=== PATIENT | female | born 1955 | race Caucasian/White ===

== ENCOUNTER 2024-04-10 19:48 | Emergency (ER) | payer MEDICARE ==
[~2024-04-10] VITALS: Ht 167.6 cm; Wt 72.6 kg
[2024-04-10 20:32] LABS: RAPID GROUP A STREP negative (NEGATIVE)
[2024-04-10 20:36] LABS: SARS-CoV-2, RNA, NAAT NEGATIVE SARS CoV-2 (NEGATIVE)
--- NOTE | 2024-04-10 20:41 | ERN ---
ED Note History of Present Illness Stated Complaint: C/O COUGH W/PHLEGM, N X V, SORE THROAT, SOB Chief Complaint: Cough Time Seen by MD: 20:01 Dictation: History of present illness: 68-year-old female with past medical history of asthma, hyperlipidemia, hypertension, status post liver transplant 9 years back for autoimmune disease, status post tonsillectomy, status post cholecystectomy presented to ED with complaints of cough with phlegm for past 4 days, sore throat, nausea, vomiting, loose stools for 1 day. She is also complaining of worsening shortness of breath. Patient lives in [place] and she is traveling right now. She is taking tacrolimus, mycophenolate, prednisone daily. At the time of presentation she is afebrile with temperature 100.4, pulse rate 75 beats per minute, respiratory rate 20 per minute, blood pressure 157/82 mmHg, SpO2 93% on room air. Allergies: Coded Allergies: No Known Allergies (Unverified Allergy, Unknown, 04/10/24) Past Medical History Past Medical History: Asthma, High Cholesterol, Hypertension Surgical History: Hysterectomy, Tonsillectomy, Cholecystectomy, Other Surgical History Other: LIVER TRANSPLANT (9 YRS) Family History: Negative Social History: Negative RN Note Reviewed/Agreed w/PFSH: Yes Review of System Dictation REVIEW OF SYSTEMS Positive for shortness of breath, productive cough, sore throat, nausea, vomiting, loose stools CONSTITUTIONAL: Denies fevers, chills, or night sweats. No unintentional weight loss reported. ENT: No hearing loss, otalgia, otorrhea, rhinitis, rhinorrhea, hoarseness, or sore throat. CARDIOVASCULAR: Denies any exertional angina, dyspnea on exertion, orthopnea, paroxysmal nocturnal dyspnea, palpitations claudication. PULMONARY: Denies any, hemoptysis, pleuritic chest pain. SLEEP: Denies morning headaches, daytime somnolence or napping. Denies difficulty falling asleep, staying asleep, waking from sleep. Denies knowledge of snoring. GASTROINTESTINAL: Denies any type of dysphagia to either liquids or solids. Denies, constipation, blood in stools . NEUROLOGICAL: Denies headache, motor weakness, sensory deficit, vertigo / spinning sensation, gait abnormalities, or tremors. GENITOURINARY: Denies frequency, urgency, nocturia, hematuria or incontinence, low urinary stream, straining to void, urinary intermittency or hesitancy ENDOCRINOLOGY: Denies polyuria, polydipsia, polyphagia or heat / cold intolerance. HEMATOLOGY: Denies thrombophilia / previous clots, or coagulopathy / bleeding disorders. ONCOLOGIC: Denies personal history of malignancy. DERMATOLOGIC: Denies rashes or pruritus. PSYCHIATRIC: Denies any suicidal or homicidal ideation. Denies hallucinations. Initial Vital Sign VS Vital Signs Date Time Temp Pulse Resp B/P (MAP) Pulse Ox O2 Delivery O2 Flow Rate FiO2 04/10/24 19:53 100.4 75 20 157/82 93 Room Air 04/10/24 21:01 0 21 Physical Exam Dictation PHYSICAL EXAM GENERAL APPEARANCE: Well nourished . Awake and alert. Oriented to time, place and person. No acute cardiopulmonary distress. HEENT: Head normocephalic , atraumatic. Sclera anicteric . Pupils are round and reactive. Extraocular movements intact . No conjunctival injection. No nasal congestion. Posterior Pharyngeal wall congestion noted NECK: Supple. No JVD. No thyromegaly. No submental, submandibular, pre- /postauricular, occipital or supraclavicular lymphadenopathy. No carotid bruits. CHEST: Normal chest expansion. No Telemetry. LUNGS: Decreased breath sounds on the right side compared to left side CARDIOVASCULAR: Regular rate and rhythm. S1 and S2 normal. No rubs, murmurs or gallops. ABDOMEN: Soft, nontender, and nondistended. There is no rebound tenderness, voluntary guarding, or rigidity. No hepatosplenomegaly. Bowel sounds normal in all four quadrants . Right-sided laparotomy scar. NEUROLOGICAL: Cranial nerves II-XII grossly intact. Motor is 5/5 in bilateral upper and lower extremities . No sensory deficits. EXTREMITIES: No edema, No cyanosis , No clubbing. Good capillary refill. SKIN: No skin breakdown. No rashes or lesions . PSYCHIATRY: Normal affect .No auditory or visual hallucinations. Normal speech. No dysarthria. Results (Laboratory/Radiology) Laboratory/Radiology Laboratory Tests Test 04/10/24 20:00 04/10/24 20:38 Influenza Type A Antigen Negative For Type A Influenza Type B Antigen Negative For Type B SARS-CoV-2, RNA, NAAT NEGATIVE SARS CoV-2 Group A Streptococcus Rapid negative (NEGATIVE) White Blood Count 15.0 K/uL (4.8-10.8) H Red Blood Count 4.50 MIL/uL (4.00-5.50) Hemoglobin 13.2 g/dL (12.0-16.0) Hematocrit 40.7 % (36-48) Mean Corpuscular Volume 90.4 fL (79-99) Mean Corpuscular Hemoglobin 29.3 pg (27.0-33.0) Mean Corpuscular Hemoglobin Concent 32.4 g/dL (32.0-36.0) Red Cell Distribution Width 12.8 % (11.0-15.5) Platelet Count 196 K/uL (130-400) Mean Platelet Volume 10.9 fL (7.5-10.5) H Nucleated Red Blood Cells 0.0 % (0.0-0.19) Sodium Level 137 mmol/L (136-145) Potassium Level 3.3 mmol/L (3.5-5.1) L Chloride Level 97 mmol/L (101-111) L Carbon Dioxide Level 29 mmol/L (21-32) Blood Urea Nitrogen 33 mg/dL (7-18) H Creatinine 1.5 mg/dL (0.5-1.0) H Glomerular Filtration Rate Calc 37 mL/min (>90) Random Glucose 175 mg/dL (70-105) H Lactic Acid Level 1.9 mmol/L (0.8-2.5) Total Calcium 9.0 mg/dL (8.5-10.1) Total Bilirubin 0.4 mg/dL (0.2-1.0) Direct Bilirubin 0.1 mg/dL (0.0-0.3) Aspartate Amino Transf (AST/SGOT) 9 U/L (10-37) L Alanine Aminotransferase (ALT/SGPT) 21 U/L (12-78) Alkaline Phosphatase 80 U/L (50-136) Troponin I High Sensitivity 9 ng/L (4-50) Total Protein 6.6 g/dL (6.0-8.3) Albumin 3.5 g/dL (3.5-5.0) Labs Reviewed?: Yes EKG Comment: EKG, 04.10.24, 8:24 p.m. Sinus rhythm, ventricular rate of 70 per minute, WI interval 160, QTC 417 Poor R-wave progression No ST elevation X-RAY Comment: PATIENT: JOSEFA SANTANA MR#: [id number] : 1955 SEX: F AGE: 68 LOCATION: [facility] ORDER 09 STATUS: REG ER REPORT#: [id number] SERVICE 02 REASON: COUGH, SOB, H/O LIVER TRANSPLANT ORDERING PHYSICIAN: COY STATON MD PROCEDURE: CXR1VW - CHEST 1VW CHEST 1VW HISTORY: Cough COMPARISON: None FINDINGS: A frontal projection of the chest was obtained. Minimal right lower lung pulmonary infiltrates are seen. The heart is normal in size. Degenerative changes are seen. No evidence of aortic calcification is seen. IMPRESSION: 1. Minimal right lower lung pulmonary infiltrates. DICTATED BY: IVETT BRADY MD DATE: 04/10/242237 ELECTRONICALLY SIGNED BY: IVETT BRADY MD DATE: 04/10/242239 ED Course ED Course Orders Procedure Category Date Status Time Covid Rna Naat LAB 04/10/24 Complete 19:58 Influenza Type A & B, LAB 04/10/24 Complete Rapid 19:58 Rapid (Group A Strep) LAB 04/10/24 Complete 19:58 Cbc Without LAB 04/10/24 Complete Differential 20:03 Basic Metabolic Panel LAB 04/10/24 Complete 20:03 Hepatic Function Panel LAB 04/10/24 Complete 20:03 Chest 1vw RAD 04/10/24 Resulted 20:03 12 Lead Ekg Tracing- EKG 04/10/24 Logged Technical 20:03 Urinalysis Profile LAB 04/10/24 Logged 20:03 Lactic Acid LAB 04/10/24 Complete 20:03 Troponin I High LAB 04/10/24 Complete Sensitivity 20:03 0.9% Nacl 500ml PHA 04/10/24 In Process Iv.Soln (Ns 500ml 22:00 Potassium Chloride PHA 04/10/24 Complete 10meq Sr (K-Dur 10meq 22:00 Ipratropium/Albuterol PHA 04/10/24 Complete Neb (Duoneb) 22:30 Methylprednisolone PHA 04/10/24 Complete Succ 40mg (Solu-Medro 22:30 Ceftriaxone 1g Vial PHA 04/10/24 Complete (Rocephine 1g Inj) 22:30 Azithromycin 500mg+Ns PHA 04/10/24 In Process 250ml (Azithromyci 22:30 Current Medications Medications (Trade) Dose Ordered Sig/Jay Route PRN Reason Start Time Stop Time Status Last Admin Dose Admin Albuterol (DUOneb) 1 UDVIAL ONCE ONCE IH 04/10/24 22:30 04/10/24 22:31 DC 04/10/24 22:44 Azithromycin 250 ml @ 250 mls/hr ONCE ONCE IVPB 04/10/24 22:30 04/10/24 23:29 Ceftriaxone Sodium (ROCEphine 1G INJ) 1 gm ONCE ONCE IVPB 04/10/24 22:30 04/10/24 22:31 DC Methylprednisolone Sodium Succinate (Solu-medROL 40MG) 60 mg ONCE ONCE IVP 04/10/24 22:30 04/10/24 22:31 DC Potassium Chloride (K-Dur 10meq Sr Tab) 10 meq ONCE ONCE PO 04/10/24 22:00 04/10/24 22:01 DC 04/10/24 22:23 Sodium Chloride 500 ml @ 125 mls/hr Q4H ONCE IV 04/10/24 22:00 04/11/24 01:59 04/10/24 22:22 Vital Signs Date Time Temp Pulse Resp B/P (MAP) Pulse Ox O2 Delivery O2 Flow Rate FiO2 04/10/24 22:44 66 20 04/10/24 21:01 98.8 77 22 141/74 95 Room Air* 0 21 04/10/24 19:53 100.4 75 20 157/82 93 Room Air We will perform diagnostic labs, advanced imaging and administer medications according to the patient's complaint. Once the results are available, will review and personally interpreted the labs to rule out any acute life- threatening emergency the trach require immediate intervention and treatment. I will then re-evaluate the patient after treatment and diagnostic exams have return to determine whether the patient requires any further testing, can safely be discharged home or need further admission to hospital for additional kavon atment and evaluation. Reviewed labs WBCs 01187. Viral serology negative. Lactic 1.9 BNP 7 shows a potassium of 3.3 BUN and creatinine are 33 and 1.5 gentle hydration and potassium repletion. I had a long discussion with the patient and spouse about admission to the hospital with a low-grade fevers and pneumonitis however patient and spouse are insistent on getting treatment in ER and adamantly want to go back to [place] where they live to follow up with the transplant physician. Medical Decision Making MDM Differential diagnosis : Atypical Pneumonia, lower respiratory tract infection, strep throat, sepsis Rationale: Tests considered and ordered secondary to shared decision making include: I will re-evaluate the patient after treatment and diagnostic exams have returned to determine whether they require further testing, can be safely discharged home, or need admission for further treatment and evaluation. Given the social determinants of health affecting care, including literacy, access to medical care, prescription drug management, and [id number] drugs, I will ensure that treatment plans are tailored accordingly. There are no social concerns with this patient. Risk of complication and/or morbidity or mortality of patient management: None Need for hospitalization: Patient does not meet criteria for hospitalization. Need for emergency major/minor surgery: No Prescription drug management Prescriptions will include symptomatic care Medications-Per medication reconciliation Previous outside records reviewed: Old ER visits. Patient's prior external medical records from other ER visits were reviewed by me as indicated. Prior testing and results from previous visits were reviewed. Prior tests were taken into account with medical decision making and resource utilization, independent historian/historians were used to obtain complete medical history. I independently interpreted the test that were performed, results were reviewed by me and considered findings on radiology. Medical management and examination interpretation discussions was done by me with other qualified healthcare professionals as indicated for the patient's care. Revaluation: Her labs showed WBC 53105, potassium 3.3, GFR 37, creatinine 1.5. As per the patient her GFR is at 50s. Requested IV fluid 500 mL NS at 125 mL/hour stat. 10 20 P.M.: Patient is short of breath with decreased breath sounds on the right side compared to the left side. She is symptomatic out of terms with chest x-ray findings. Considering the immunosuppressed status and the symptoms, we will request nebulization stat, IV antibiotics and IV Solu-Medrol and we will reassess as patient refuse to get admitted. She states that she will be going back to [place] in 5 days. Disposition : Problem List Problem List: (1) History of liver transplant (2) Right lower lobe pneumonitis (3) Right lower lobe pulmonary infiltrate (4) Acute kidney injury superimposed on CKD (5) Immunosuppressed status DX & DISP Disposition: Observation Departure Impression: Primary Impression: Right lower lobe pulmonary infiltrate Additional Impressions: Liver transplant status, Immunosuppressed status, Acute kidney injury superimposed on CKD, Right lower lobe pneumonitis Critical Time: 30 minutes Condition: Stable Additional Instructions: You are diagnosed with lower respiratory tract infection and acute kidney injury. You are started on antibiotics. Follow-up with primary care provider in 1-2 days Take medications as directed here in the emergency room. It is okay to continue home medications unless otherwise discussed during your visit in the emergency room today. Increase oral hydration. If a wound culture or urine culture was ordered here in the emergency room department, please follow-up with primary care provider and advised them to get reports from our facility. If you had any Peter wrap/splints that were applied here placed to not remove them until you see your primary care physician. Return to your nearest emergency room if symptoms worsen or if there is no improvement. Call 911 if you need immediate assistance. I have examined patient, & reviewed all documents, & agreed W/ the Diagnosis, and Plan This is a 68-year-old female from the [facility] on a vacation here presented to the emergency room with 5 day history of cough congestion clear sputum. She has low-grade fevers. She had a liver transplant 9 years ago and has been doing extremely well and follows with her transplant surgeon and department at [facility] in [place]. She is on tacrolimus and CellCept vital signs reviewed temp 100.4 General: awake, alert, NAD Head/Face: Normocephalic, atraumatic Eyes: PERRL, EOMI, vision at baseline ENT: oral cavity clear, TMs clear, no signs of infection Neck: Trachea midline, supple, no nuchal rigidity Cardiovascular: RRR, normal S1/S2, No MRGs, no JVD Respiratory: decreased breath sounds at the right base Abdomen: Soft, non-tender, non-distended, normal bowel sounds, no guarding or rebound. Skin: Warm, dry, normal turgor, no rash MS/Extremity: Pulses equal, no cyanosis, neurovascular intact, FROM Neuro: COAx4, GCS 15, strength 5/5, CN 2-12 intact, normal cerebellar exam, normal gait, Psych: Normal behavior, mood, and affect normal Extremities-no edema without any palpable cords, Homans sign is negative Labs reviewed potassium 3.3 BUN and creatinine are 33 and 1.5. Lactic acid 1.9 chest x-ray showed a right lower lobe patchy infiltrate viral serology negative impression as listed in the problem list I had a long discussion with the patient and spouse and discussed the differential diagnosis and at this time both are very adamant about getting treated in the ER only and refuse admission to the hospital. COY STATON MD Apr 10, 2024 20:41 SUZI ARMENTA MD Apr 10, 2024 23:10
[2024-04-10 20:43] LABS: INFLUENZA TYPE A Negative For Type A (NEGATIVE); INFLUENZA TYPE B Negative For Type B (NEGATIVE)
[2024-04-10 20:50] LABS: HEMATOCRIT 40.7 % (36-48); MEAN CORPUSCULAR HEMOGLOBIN 29.3 pg (27.0-33.0); MEAN CORPUSCULAR HGB CONC 32.4 g/dL (32.0-36.0); MEAN CORPUSCULAR VOLUME 90.4 fL (79-99); RED BLOOD CELL COUNT(AUTO) 4.5 MIL/uL (4.00-5.50); RED CELL DISTRIBUTION WIDTH 12.8 % (11.0-15.5)
[2024-04-10 21:01] VITALS: TEMP 98.7
[2024-04-10 21:04] LABS: CREATININE 1.5 mg/dL (0.5-1.0); POTASSIUM 3.3 mmol/L (3.5-5.1)
[2024-04-10 21:08] LABS: ALBUMIN 3.5 g/dL (3.5-5.0); BILIRUBIN,DIRECT 0.1 mg/dL (0.0-0.3); BILIRUBIN,TOTAL 0.4 mg/dL (0.2-1.0); TOTAL PROTEIN, SERUM 6.6 g/dL (6.0-8.3)
[2024-04-10] MEDS: 0.9% NACL 500ML IV.SOLN 500 ML IV ONE (22:22)
[2024-04-10] MEDS: PoTASSium chloRIDE 10MEQ SR 10 MEQ/TAB TAB.SR.24H PO ONE (22:23)
--- NOTE | 2024-04-10 22:40 | HMCIMG ---
CHEST 1VW HISTORY: Cough COMPARISON: None FINDINGS: A frontal projection of the chest was obtained. Minimal right lower lung pulmonary infiltrates are seen. The heart is normal in size. Degenerative changes are seen. No evidence of aortic calcification is seen. IMPRESSION: 1. Minimal right lower lung pulmonary infiltrates.
[2024-04-10 22:44] VITALS: PULSE 66; RESP 20
[2024-04-10] MEDS: IpraTROPium/alBUTERol SULFATE 3 ML SOLUTION IH ONE (22:44)
[2024-04-10] MEDS: cefTRIAXone 1G VIAL IVPB ONE (23:03)
[2024-04-10] MEDS: Solu-medROL 40MG VIAL IVP ONE (23:03)
[2024-04-10] MEDS: AZITHROMYCIN 500MG+NS 250ML 250 ML IVPB ONE (23:03)
[2024-04-10 23:45] VITALS: BP 129/71; PULSE 71; RESP 22; O2SAT 95
[2024-04-10] MEDS ORDERED: AMOX1TAB16 PO (23:49)
--- NOTE | 2024-04-11 06:47 | EKG ---
[facility] Test Date: 2024-04-10 Test Time: 20:24:43 Pat Name: JOSEFA SANTANA Department: ED Room: Gender: F Sander And Buffer: [id number] : 1955 Requested By: COY STATON Order Number: [id number] Reading MD: Len Cam Measurements Intervals [place] Rate: 70 P: 75 FL: 160 QRS: -13 QRSD: 105 T: 62 QT: 387 QTc: 417 Interpretive Statements Sinus rhythm No previous ECG available for comparison Electronically Signed On 04-11-2024 18:35:30 REGISTERED NURSE FETAL by Len Cam Please click the below link to view image of tracing.
== END 2024-04-11 00:33 | disposition home or self-care (01) ==
LOC: EDH 19:48
DX: J18.9 Pneumonia, unspecified organism (principal); R91.8 Other nonspecific abnormal finding of lung field; I12.9 Hypertensive chronic kidney disease with stage 1 through stage 4 chronic kidney disease, or unspecified chronic kidney disease; N18.9 Chronic kidney disease, unspecified; N17.9 Acute kidney failure, unspecified; D84.821 Immunodeficiency due to drugs; E78.00 Pure hypercholesterolemia, unspecified; J45.909 Unspecified asthma, uncomplicated; Z20.822 Contact with and (suspected) exposure to COVID-19; Z79.52 Long term (current) use of systemic steroids; Z79.621 Long term (current) use of calcineurin inhibitor; Z79.624 Long term (current) use of inhibitors of nucleotide synthesis; Z90.49 Acquired absence of other specified parts of digestive tract; Z90.710 Acquired absence of both cervix and uterus; Z94.4 Liver transplant status
CPT/HCPCS: 99291; 96365; 71045; 87635; 96375; 80076; 84484; 80048; 85027; 87880; 87804 ×2; 83605; 36415; 96368; 93005; 94640; J7040; J0696; J2919; J0456